=== PATIENT | male | born 1955 | race Caucasian/White ===

== ENCOUNTER 2020-08-15 14:05 | Inpatient (IN) ==
[2020-08-15] MEDS ORDERED: 0.9 % SODIUM CHLORIDE 1,000 ML IV ONE (14:32)
[2020-08-15] MEDS ORDERED: ACETAMINOPHEN 325 MG TABLET PO ONE (14:33)
[2020-08-15] MEDS ORDERED: cefTRIAXone 1 GM VIAL IV ONE (14:37)
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
[2020-08-15 15:18] LABS: Hematocrit 40.4 % (41.0-55.0); Hemoglobin 13.9 g/dL (13.5-16.5); Mean Cell Volume 86.7 fL (80.0-100.0); Mean Corpuscular HGB Conc 34.4 g/dL (31.0-36.0); Platelet Count 284 K/mcL (140-440); RBC 4.66 M/mcL (4.50-5.90); Red Cell Distribution Width 12.6 % (11.5-14.5); WBC 13.8 K/mcL (4.5-11.0)
[2020-08-15 15:52] LABS: ALT/SGPT 19 U/L (<40); AST/SGOT 22 U/L (<40); Albumin 3.9 gm/dL (3.2-5.2); Albumin/Globulin Ratio 1.3 (1.0-2.3); Alkaline Phosphatase 106 U/L (39-117); Bilirubin,Total 0.8 mg/dL (0.1-1.0); Blood Urea Nitrogen 18 mg/dL (8-23); Calcium 9.3 mg/dL (8.6-10.4); Carbon Dioxide 23 mmol/L (22-30); Chloride 100 mmol/L (96-108); Glomerular Filtration Rate 57; Glucose 91 mg/dL (70-105)
[2020-08-15 15:53] LABS: Band Neutrophils % 1 % (0-10); Eosinophils % (Manual) 1 % (0-7); Lymphocytes % 8 % (15-49); Monocytes % (Manual) 9 % (1-12); Platelet Estimate NORMAL (Normal); RBC Morphology NORMAL (Normal); Reactive Lymphocytes 1 % (0-2); Segmented Neutrophils % 80 % (38-78)
[2020-08-15 15:55] LABS: Appearance,Urine HAZY (Clear); Bilirubin,Urine Negative (Negative); Color,Urine YELLOW; Culture Indicated,Urine yes; Glucose,Urine (UA) Negative (Negative); Ketones,Urine Negative (Negative); Leukocyte Esterase,Urine 75 /ug (Negative); Nitrate,Urine Negative (Negative); Protein,Urine 30 mg/dL (Negative); Specific Gravity,Urine 1.018 (1.000-1.035); Urine RBC 120 /hpf (0-3); Urine Squamous Epithelial Cell 0 /hpf (0-4); Urine WBC 44 /hpf (0-4)
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
[2020-08-15] MEDS ORDERED: GENTAMICIN PER PHARMACY IV ONE (16:44)
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
[2020-08-15] MEDS: MEROPENEM 2 GM in 0.9 % SODIUM CHLORIDE 100 ML IV SCH (18:10)
[2020-08-15] MEDS ORDERED: ONDANSETRON 4 MG ODT TABLET SL PRN (20:25)
[2020-08-15] MEDS ORDERED: POLYETHYLENE GLYCOL 3350 17 GM PACKET PO PRN (20:25)
[2020-08-15] MEDS ORDERED: POTASSIUM CHLORIDE 20 MEQ PACKET PO PRN (20:25)
[2020-08-15] MEDS ORDERED: MAGNESIUM SULFATE 2 GM/50 ML BAG IV PRN (20:25)
[2020-08-15] MEDS ORDERED: MEROPENEM 0.5 GM in 0.9 % SODIUM CHLORIDE 50 ML IV SCH (20:25)
[2020-08-15] MEDS ORDERED: BISACODYL 10 MG SUPP.RECT PR PRN (20:25)
[2020-08-15] MEDS ORDERED: ACETAMINOPHEN 650 MG/65 ML BAG IV PRN (20:25)
[2020-08-15] MEDS ORDERED: ONDANSETRON 4 MG/2 ML VIAL IV PRN (20:25)
[2020-08-15] MEDS ORDERED: ACETAMINOPHEN 325 MG TABLET PO PRN (20:25)
[2020-08-15] MEDS ORDERED: POTASSIUM CHLORIDE 40 MEQ in DEXTROSE 5% IN WATER 500 ML IV PRN (20:25)
[2020-08-15] MEDS: 0.9 % SODIUM CHLORIDE 1,000 ML IV SCH ×2 (21:22→21:35)
[2020-08-15] MEDS: HEPARIN 5,000 UNIT/ML VIAL SQ SCH (21:38)
[2020-08-15] MEDS: TAMSULOSIN 0.4 MG CAPSULE PO SCH (21:38)
[2020-08-15] MEDS: DOCUSATE SODIUM 100 MG CAPSULE PO SCH (21:38)
[2020-08-15] MEDS: SENNOSIDES/DOCUSATE SODIUM 1 TAB TABLET PO SCH (21:38)
[2020-08-15] MEDS: 0.9 % SODIUM CHLORIDE 10 ML SYRINGE IV SCH (23:03)
[2020-08-16] MEDS: MEROPENEM 2 GM in 0.9 % SODIUM CHLORIDE 100 ML IV SCH ×4 (00:27→21:15)
[2020-08-16] MEDS: MELATONIN 3 MG TABLET PO PRN ×2 (01:17→21:09)
[2020-08-16 05:39] LABS: Hematocrit 35.2 % (41.0-55.0); Hemoglobin 12.1 g/dL (13.5-16.5); Mean Cell Volume 87.6 fL (80.0-100.0); Mean Corpuscular HGB Conc 34.4 g/dL (31.0-36.0); Mean Platelet Volume 9.7 fL (7.4-10.4); Platelet Count 236 K/mcL (140-440); RBC 4.02 M/mcL (4.50-5.90); Red Cell Distribution Width 12.5 % (11.5-14.5); WBC 8.6 K/mcL (4.5-11.0)
[2020-08-16] MEDS: 0.9 % SODIUM CHLORIDE 10 ML SYRINGE IV SCH ×3 (05:49→21:10)
[2020-08-16 06:03] LABS: ALT/SGPT 16 U/L (<40); AST/SGOT 16 U/L (<40); Albumin 3.2 gm/dL (3.2-5.2); Albumin/Globulin Ratio 1.2 (1.0-2.3); Alkaline Phosphatase 82 U/L (39-117); Bilirubin,Direct < 0.2 mg/dL (0-0.3); Bilirubin,Total 0.6 mg/dL (0.1-1.0); Blood Urea Nitrogen 16 mg/dL (8-23); Calcium 8.3 mg/dL (8.6-10.4); Carbon Dioxide 24 mmol/L (22-30); Chloride 105 mmol/L (96-108); Globulin 2.6 gm/dL (2.2-3.7); Glomerular Filtration Rate 63; Glucose 90 mg/dL (70-105); Lactate Dehydrogenase 131 U/L (135-225); Phosphorous 2.7 mg/dL (2.5-4.5); Triglycerides 67 mg/dL (<150); Uric Acid 6.2 mg/dL (2.5-8.0)
[2020-08-16] MEDS: 0.9 % SODIUM CHLORIDE 1,000 ML IV SCH ×3 (06:21→21:15)
[2020-08-16] MEDS: MULTIVIT,THER IRON,CA,FA & MIN 1 TABLET PO SCH (08:32)
[2020-08-16] MEDS: HEPARIN 5,000 UNIT/ML VIAL SQ SCH ×2 (08:32→21:10)
[2020-08-16] MEDS: DOCUSATE SODIUM 100 MG CAPSULE PO SCH ×2 (08:33→21:10)
--- NOTE | 2020-08-16 08:54 | General Surgery Progress Note ---
SUBJECTIVE Subjective Patient information: Note initiated : 08/16/20 at 8:49 am Service Date, if different from initiated Date: [] Patient: Osvaldo Naik 65 y/o M admitted on 08/15/20 for Fever after prostate biopsy yesterday.. Chief Complaint: [] Principal diagnosis: post op biopsy infection Interval history: Patient doing well presently and remains afebrile vital signs stable Patient has no nausea vomiting and voiding has significantly improved and remains clear Constitutional Vitals: Vital Signs Patient doing well with no CVA tenderness no abdominal masses and nontoxic exam grossly normal Temp Pulse Resp BP Pulse Ox 97.9 F 71 16 135/73 96 08/16/20 07:42 08/16/20 07:42 08/16/20 07:42 08/16/20 07:42 08/16/20 07:42 Period Temp Pulse Resp BP Sys/[place] Pulse Ox Last 24 Hr 97.9 F-104.3 F 68-125 16-20 101-136/60-82 92-99 Intake and Output 08/15/20 08/16/20 08/16/20 21:59 05:59 13:59 Intake Total 1100 390 340 Output Total 925 150 Balance 1100 -535 190 Weight 197 lb Intake & Output: Intake & Output 08/15/20 08/16/20 08/16/20 21:59 05:59 13:59 Intake Total 1100 390 340 Output Total 925 150 Balance 1100 -535 190 Weight 197 lb Intake: IV 1100 100 100 Sodium Chloride 0.9% 1,000 ml @ 1000 Wide Open IV [facility] Rx#: [id number] Merrem 2 gm In Sodium Chloride 100 100 100 0.9% 100 ml @ 100 mls/hr IV Q8H [facility] Rx#:[id number] Oral 290 240 Output: Void Amount 925 150 Other: Meal Breakfast Percent of Meal Consumed 100% Feeding Ability Independent Urine Appearance Clear Urine Color Pale A/P Narrative A/P Narrative: Patient doing well and resolving infection with WBC is returning to normal and urine remaining clear. Patient emptying bladder well with Flomax and will await urine culture results and see if alternate antibiotic regimen can be obtained for patient as outpatient status. Plan to proceed with work-up for prostate cancer once resolution of inflammatory process more treated--likely 10 to 14 days Time Spent With Patient Time: Total time spent is greater than 50% in coordination of care (as documented) at patient's floor/unit and/or counseling patient:
[2020-08-16 09:36] LABS: Eosinophils % (Manual) 1 % (0-7); Lymphocytes % 26 % (15-49); Monocytes % (Manual) 8 % (1-12); Platelet Estimate NORMAL (Normal); Polychromasia OCC (None Seen); RBC Morphology ABNORMAL (Normal); Reactive Lymphocytes 2 % (0-2); Segmented Neutrophils % 63 % (38-78)
[2020-08-16] MEDS ORDERED: GABAPENTIN 300 MG CAPSULE PO PRN (10:20)
[2020-08-16] MEDS: ESCITALOPRAM 10 MG TABLET PO SCH (10:51)
[2020-08-16] MEDS: busPIRone 5 MG TABLET PO SCH ×2 (10:52→21:09)
[2020-08-16] MEDS: OMEPRAZOLE 20 MG CAPSULE PO SCH (10:52)
[2020-08-16] MEDS: CETIRIZINE 10 MG TABLET PO SCH (10:52)
--- NOTE | 2020-08-16 13:27 | Internal Med Progress Note ---
SUBJECTIVE Subjective Patient information: Note initiated : 08/16/20 at 1:24 pm Service Date, if different from initiated Date: [] Patient: Osvaldo Naik 65 y/o M admitted on 08/15/20 for Fever after prostate biopsy yesterday.. Chief Complaint: [] Principal diagnosis: post op biopsy infection Interval history: Mrs. Wallace 65-year-old gentleman who underwent transrectal prostate biopsy yesterday by urologist Dr. Kaz Velez. Patient received a dose of Rocephin/gentamicin and sent home post biopsy. Shortly thereafter marva leija started experiencing shaking chills and high-grade fever and call urology office and was directed to the ER for evaluation Initial work-up was consistent with fever of 104.2/elevated white count at 13.6. Systolics around 100. Lactic acid normal. Patient was started on antibiotic coverage after cultures were drawn. Urology was consulted and advised hospitalization. In addition hospitalist service was consulted for management of medical issues during the hospital stay while post biopsy infection will be addressed by urology. 08/16 patient responding well to meropenem. Afebrile. White count downtrending at 8.6. Denies abdominal pain, fever chills, creatinine down to 1.2 Constitutional Vitals: Vital Signs Temp Pulse Resp BP Pulse Ox 97.8 F 52 L 16 120/70 94 08/16/20 12:00 08/16/20 12:00 08/16/20 12:00 08/16/20 12:00 08/16/20 12:00 Period Temp Pulse Resp BP Sys/[place] Pulse Ox Last 24 Hr 97.8 F-104.3 F 52-125 16-20 101-136/60-82 92-99 Intake and Output 08/15/20 08/16/20 08/16/20 21:59 05:59 13:59 Intake Total 2542 240 3521 Output Total 925 150 Balance 1100 -535 1190 Weight 89.358 kg Alert oriented Nonlabored breathing Nondistended abdomen Minimal anxiety Intake & Output: Intake & Output 08/15/20 08/16/20 08/16/20 21:59 05:59 13:59 Intake Total 3580 999 3682 Output Total 925 150 Balance 1100 -535 1190 Weight 89.358 kg Intake: IV 0435 551 0382 Sodium Chloride 0.9% 1,000 ml @ 1000 1000 100 mls/hr IV .Q10H [facility] Rx#: [id number] Merrem 2 gm In Sodium Chloride 100 100 100 0.9% 100 ml @ 100 mls/hr IV Q8H [facility] Rx#:[id number] Oral 290 240 Output: Void Amount 925 150 Other: Meal Breakfast Percent of Meal Consumed 100% Feeding Ability Independent Urine Appearance Clear Urine Color Pale # Voids 1 # Bowel Movements 1 OBJ DATA Labs CBC & Chem 7: 08/16/20 05:14 08/16/20 05:10 Labs: Abnormal Lab Results 08/16/20 08/16/20 08/15/20 05:14 05:10 15:08 WBC RBC 4.02 L Hgb 12.1 L Hct 35.2 L Seg Neutrophils % Lymphocytes % RBC Morphology Abnormal A Polychromasia Occ A Sodium Anion Gap 6.0 L Creatinine Calcium 8.3 L Lactate Dehydrogenase 131 L Total Protein 5.8 L Urine Appearance Hazy A Urine Protein 30 A Urine Urobilinogen 2.0 A Ur Leukocyte Esterase 75 A Urine RBC 120 H Urine WBC 44 H 08/15/20 08/15/20 14:25 14:25 WBC 13.8 H RBC Hgb Hct 40.4 L Seg Neutrophils % 80 H Lymphocytes % 8 L RBC Morphology Polychromasia Sodium 131 L Anion Gap Creatinine 1.3 H Calcium Lactate Dehydrogenase Total Protein Urine Appearance Urine Protein Urine Urobilinogen Ur Leukocyte Esterase Urine RBC Urine WBC Meds: Medications Acetaminophen (Acetaminophen 325 Mg Tablet) 650 mg PO Q4-6HP PRN; Protocol PRN Reason: Per Pain Protocol/Fever > 101 Amlodipine Besylate (Amlodipine 10 Mg Tablet) 10 mg PO QDAY [facility] Atorvastatin Calcium (Atorvastatin 10 Mg Tablet) 10 mg PO HS [facility] Bisacodyl (Bisacodyl 10 Mg Supp.Rect) 10 mg DE Q2-3DAYS PRN PRN Reason: Constipation Buspirone HCl (Buspirone 5 Mg Tablet) 5 mg PO BID [facility] Last Admin: 08/16/20 10:52 Dose: 5 mg Documented by: Cetirizine HCl (Cetirizine 10 Mg Tablet) 10 mg PO QAM [facility] Last Admin: 08/16/20 10:52 Dose: 10 mg Documented by: Docusate Sodium (Docusate Sodium 100 Mg Capsule) 100 mg PO BID [facility] Last Admin: 08/16/20 08:33 Dose: Not Given Documented by: Escitalopram Oxalate (Escitalopram 10 Mg Tablet) 5 mg PO DAILY [facility] Last Admin: 08/16/20 10:51 Dose: 5 mg Documented by: Gabapentin (Gabapentin 300 Mg Capsule) 900 mg PO TIDP PRN PRN Reason: Pain Heparin Sodium (Porcine) (Heparin 5,000 Unit/Ml Vial) 5,000 unit SQ Q12 [facility] Last Admin: 08/16/20 08:32 Dose: 5,000 unit Documented by: Hydrochlorothiazide (Hydrochlorothiazide 25 Mg Tablet) 25 mg PO QAM [facility] Hydroxyzine HCl (Hydroxyzine 25 Mg Tablet) 25 mg PO HS [facility] Meropenem 2 gm/ Sodium (Chloride) 100 mls @ 100 mls/hr IV Q8H [facility] Last Infusion: 08/16/20 06:58 Dose: Infused Documented by: Potassium Chloride 40 meq/ (Dextrose) 520 mls @ 130 mls/hr IV UD PRN PRN Reason: K+ = or < 3.5 Acetaminophen (Ofirmev) 650 mg in 65 mls @ 130 mls/hr IV Q6HP PRN; Protocol PRN Reason: Per Pain Protocol/Fever > 101 Magnesium Sulfate (Magnesium Sulfate) 2 gm in 50 mls @ 50 mls/hr IV UD PRN PRN Reason: MG = or < 1.7 Sodium Chloride (Sodium Chloride 0.9%) 1,000 mls @ 100 mls/hr IV .Q10H [facility] Last Admin: 08/16/20 11:08 Dose: 100 mls/hr Documented by: Iron Carb/Multivit/[employer]/Folic Acid (Multivit,Ther Iron,Ca,Fa & Min 1 Tablet) 1 tab PO DAILY [facility] Last Admin: 08/16/20 08:32 Dose: 1 tab Documented by: Melatonin (Melatonin 3 Mg Tablet) 3 mg PO HSP PRN PRN Reason: Insomnia Last Admin: 08/16/20 01:17 Dose: 3 mg Documented by: Omeprazole (Omeprazole 20 Mg Capsule) 20 mg PO ACB [facility] Last Admin: 08/16/20 10:52 Dose: 20 mg Documented by: Ondansetron HCl (Ondansetron 4 Mg Odt Tablet) 4 mg SL Q4-6HP PRN; Protocol PRN Reason: Nausea And Vomiting Ondansetron HCl (Ondansetron 4 Mg/2 Ml Vial) 4 mg IV Q4-6HP PRN; Protocol PRN Reason: Nausea And Vomiting Polyethylene Glycol (Polyethylene Glycol 3350 17 Gm Packet) 17 gm PO DAILYP PRN PRN Reason: Constipation Potassium Chloride (Potassium Chloride 20 Meq Packet) 40 meq PO DAILYP PRN PRN Reason: K+ < 3.5 Senna/Docusate Sodium (Sennosides/Docusate Sodium 1 Tab Tablet) 1 tab PO [facility] Last Admin: 08/15/20 21:38 Dose: Not Given Documented by: Sodium Chloride (0.9 % Sodium Chloride 10 Ml Syringe) 10 ml IV Q8 [facility] Last Admin: 08/16/20 05:49 Dose: Not Given Documented by: Tamsulosin HCl (Tamsulosin 0.4 Mg Capsule) 0.4 mg PO [facility] Last Admin: 08/15/20 21:38 Dose: 0.4 mg Documented by: A/P Narrative A/P Narrative: * Post prostate biopsy infection: Managed per urology * Prostate cancer-managed per urology Hospitalist consult for management medical issues * Severe sepsis-responded well to IV meropenem for ESBL coliform coverage. Cultures negative so far * History of CKD continue monitoring renal function. Creatinine at baseline * History of hypertension restart antihypertensives in 24 hours * History of GERD continue PPI * Neuropathy continue gabapentin * Anxiety disorder continue escitalopram/BuSpar * prophylaxis Heparin Plan * Continue meropenem IV * Pre-existing medical condition management as above * Restart antihypertensives in 24 hours * De-escalate antibiotics once culture resulted Time Spent With Patient Time: Total time spent is greater than 50% in coordination of care (as documented) at patient's floor/unit and/or counseling patient: QUALITY VTE Deep Vein Thrombosis/Pulmonary Embolism Present on Admission: No
[2020-08-16] MEDS ORDERED: busPIRone 5 MG TABLET PO SCH (21:00)
[2020-08-16] MEDS ORDERED: hydrOXYzine 25 MG TABLET PO SCH (21:00)
[2020-08-16] MEDS ORDERED: ATORVASTATIN 10 MG TABLET PO SCH (21:00)
[2020-08-16] MEDS: TAMSULOSIN 0.4 MG CAPSULE PO SCH (21:09)
[2020-08-16] MEDS: SENNOSIDES/DOCUSATE SODIUM 1 TAB TABLET PO SCH (21:10)
[2020-08-17] MEDS: 0.9 % SODIUM CHLORIDE 1,000 ML IV SCH ×2 (04:58→10:27)
[2020-08-17] MEDS: MEROPENEM 2 GM in 0.9 % SODIUM CHLORIDE 100 ML IV SCH ×2 (05:41→14:59)
[2020-08-17] MEDS: 0.9 % SODIUM CHLORIDE 10 ML SYRINGE IV SCH ×2 (05:42→13:17)
[2020-08-17 07:28] LABS: Basophils # (Auto) 0.03 K/mcL (0.00-0.20); Basophils % (Auto) 0.5 % (0.0-2.0); Eosinophils # (Auto) 0.17 K/mcL (0.00-0.70); Eosinophils % (Auto) 2.8 % (0.0-7.0); Hematocrit 35.7 % (41.0-55.0); Hemoglobin 12.3 g/dL (13.5-16.5); Lymphocytes # (Auto) 1.08 K/mcL (1.50-4.80); Mean Cell Volume 87.3 fL (80.0-100.0); Mean Corpuscular HGB Conc 34.5 g/dL (31.0-36.0); Mean Platelet Volume 10.4 fL (7.4-10.4); Monocytes # (Auto) 0.66 K/mcL (0.10-0.90); Neutrophils % (Auto) 67.7 % (38.0-78.0); Platelet Count 253 K/mcL (140-440); RBC 4.09 M/mcL (4.50-5.90); Red Cell Distribution Width 12.5 % (11.5-14.5)
[2020-08-17] MEDS ORDERED: OMEPRAZOLE 20 MG CAPSULE PO SCH (07:30)
--- NOTE | 2020-08-17 07:53 | General Surgery Progress Note ---
SUBJECTIVE Subjective Patient information: Note initiated : 08/17/20 at 7:46 am Service Date, if different from initiated Date: [] Patient: Osvaldo Naik 65 y/o M admitted on 08/15/20 for Fever after prostate biopsy yesterday.. Chief Complaint: [] Principal diagnosis: post op biopsy infection Interval history: AFVSS no new complaints and cont to void OK with meds-remains clear urine labs OK this am on CBC- chem pending Constitutional Vitals: Vital Signs Temp Pulse Resp BP Pulse Ox 97.8 F 81 16 127/82 95 08/17/20 06:51 08/17/20 06:51 08/17/20 06:51 08/17/20 06:51 08/17/20 06:51 Period Temp Pulse Resp BP Sys/[place] Pulse Ox Last 24 Hr 97.8 F-99.0 F 72-81 16-16 116-161/66-85 93-96 Intake and Output 08/16/20 08/17/20 08/17/20 21:59 05:59 13:59 Intake Total 1340 200 Output Total 975 375 250 Balance 365 -175 -250 Weight 200 lb Intake & Output: Intake & Output 08/16/20 08/17/20 08/17/20 21:59 05:59 13:59 Intake Total 1340 200 Output Total 975 375 250 Balance 365 -175 -250 Weight 200 lb Intake: IV 1100 100 Sodium Chloride 0.9% 1,000 ml @ 1000 100 mls/hr IV .Q10H [facility] Rx#: [id number] Merrem 2 gm In Sodium Chloride 100 100 0.9% 100 ml @ 100 mls/hr IV Q8H [facility] Rx#:[id number] Oral 240 100 Output: Void Amount 975 375 250 Other: Meal Dinner Percent of Meal Consumed 100% Feeding Ability Independent Urine Appearance Clear Clear Clear Urine Color Pale Dark Yellow Bright Yellow Additional findings Additional findings: nontoxic and comfortable abd soft no CVA tenderness A/P Narrative A/P Narrative: Doing well on parenteral antibiotics and should be able to go home on orals if cultures remain negative-could check with ID but likely Levaquin reasonable or as per ID empirically and per local microbial dillon assessment will need to see back in about two-three weeks for staging cancer and further reval for tretment options- could see back in clinic next week for f/u on infection Time Spent With Patient Time: Total time spent is greater than 50% in coordination of care (as documented) at patient's floor/unit and/or counseling patient:
[2020-08-17] MEDS: OMEPRAZOLE 20 MG CAPSULE PO SCH (08:00)
[2020-08-17] MEDS: DOCUSATE SODIUM 100 MG CAPSULE PO SCH (08:01)
[2020-08-17 08:02] LABS: ALT/SGPT 14 U/L (<40); AST/SGOT 15 U/L (<40); Albumin 3.4 gm/dL (3.2-5.2); Albumin/Globulin Ratio 1.3 (1.0-2.3); Alkaline Phosphatase 78 U/L (39-117); Bilirubin,Direct < 0.2 mg/dL (0-0.3); Bilirubin,Total 0.3 mg/dL (0.1-1.0); Blood Urea Nitrogen 11 mg/dL (8-23); Calcium 8.5 mg/dL (8.6-10.4); Carbon Dioxide 22 mmol/L (22-30); Chloride 106 mmol/L (96-108); Globulin 2.6 gm/dL (2.2-3.7); Glomerular Filtration Rate 78; Glucose 85 mg/dL (70-105); Lactate Dehydrogenase 153 U/L (135-225); Phosphorous 2.4 mg/dL (2.5-4.5); Triglycerides 93 mg/dL (<150); Uric Acid 5.2 mg/dL (2.5-8.0)
[2020-08-17] MEDS ORDERED: CETIRIZINE 10 MG TABLET PO SCH (09:00)
[2020-08-17] MEDS ORDERED: HYDROCHLOROTHIAZIDE 25 MG TABLET PO SCH (09:00)
[2020-08-17] MEDS ORDERED: amLODIPine 10 MG TABLET PO SCH (09:00)
[2020-08-17] MEDS ORDERED: ESCITALOPRAM 10 MG TABLET PO SCH (09:00)
[2020-08-17] MEDS: busPIRone 5 MG TABLET PO SCH (10:21)
[2020-08-17] MEDS: ESCITALOPRAM 10 MG TABLET PO SCH (10:21)
[2020-08-17] MEDS: CETIRIZINE 10 MG TABLET PO SCH (10:22)
[2020-08-17] MEDS: HEPARIN 5,000 UNIT/ML VIAL SQ SCH (10:24)
[2020-08-17] MEDS: MULTIVIT,THER IRON,CA,FA & MIN 1 TABLET PO SCH (10:26)
--- NOTE | 2020-08-17 13:37 | Discharge Summary ---
Discharge Provider Provider Patient information: Note initiated : 08/17/20 at 1:33 pm Service Date, if different from initiated Date: [] Patient: Osvaldo Naik 65 y/o M admitted on 08/15/20 for Fever after prostate biopsy yesterday.. Discharge diagnosis * Post prostate biopsy infection: Managed per urology, patient doing well. We will follow-up with urology as outpatient. Was recommendations * Prostate cancer-managed per urology. Outpatient urology Hospitalist consult for management medical issues * Severe sepsis-responded well to IV meropenem for ESBL coliform coverage. However cultures negative so far. Discharging on oral cefdinir for additional 10 days * History of CKD remained at baseline * History of hypertension continue home dose antihypertensives * History of GERD continue PPI * Neuropathy managed on gabapentin * Anxiety disorder remained stable on home dose escitalopram/BuSpar Brief hospital course Mrs. Wallace 65-year-old gentleman who underwent transrectal prostate biopsy yesterday by urologist Dr. Kaz Velez. Patient received a dose of Rocephin/gentamicin and sent home post biopsy. Shortly thereafter patient started experiencing shaking chills and high-grade fever and call urology office and was directed to the ER for evaluation Initial work-up was consistent with fever of 104.2/elevated white count at 13.6. Systolics around 100. Lactic acid normal. Patient was started on antibiotic coverage after cultures were drawn. Urology was consulted and advised hospitalization. In addition hospitalist service was consulted for management of medical issues during the hospital stay while post biopsy infection will be addressed by urology. 08/16 patient responding well to meropenem. Afebrile. White count downtrending at 8.6. Denies abdominal pain, fever chills, creatinine down to 1.2 08/17-cultures negative so far. Doing well. Afebrile. White count normalized. Clinically improved. Urology recommend p.o. antibiotics on discharge. Continue additional 10 days oral cefdinir due to risk of prolonged QT with Levaquin and home medications. Follow-up with urology as outpatient. Date of admission: 08/15/20 20:20 Discharge date: 08/17/20 Primary care physician: Aisha Beatty Consults: 08/15/20 Consult to Physician [CONS] Stat Comment: Consulting Provider: Kaz Velez Reason For Exam: Physician to Consult 08/15/20 16:23 Consult to Physician [CONS] Stat Comment: Consulting Provider: Mic Tee Reason For Exam: Physician to Consult Discharge Meds Discharge Medications Home Medications omeprazole 20 mg PO QAMAC 05/15/15 [History Confirmed 08/15/20 Last Taken 08/14/20 08:00] amlodipine 10 mg tablet 10 mg PO QDAY 06/28/20 [History Confirmed 08/15/20 Last Taken 08/14/20 08:00] buspirone 5 mg tablet 5 mg PO BID tab 06/28/20 [History Confirmed 08/15/20 Last Taken 08/14/20 08:00] escitalopram oxalate 5 mg tablet 5 mg PO QPM 06/28/20 [History Confirmed 08/15/20 Last Taken 08/14/20 08:00] hydroxyzine HCl 25 mg tablet 25 mg PO QHS 06/28/20 [History Confirmed 08/15/20 Last Taken 08/13/20 20:00] cetirizine 10 mg PO QAM 08/15/20 [History Confirmed 08/15/20 Last Taken 08/14/20 08:00] gabapentin 900 mg PO TID PRN 08/15/20 [History Confirmed 08/15/20 Last Taken 08/14/20 08:00] hydrochlorothiazide 25 mg PO QAM 08/15/20 [History Confirmed 08/15/20 Last Taken 08/14/20 08:00] losartan 100 mg PO QAM 08/15/20 [History Confirmed 08/15/20 Last Taken 08/14/20 08:00] rosuvastatin 5 mg PO QPM 08/15/20 [History Confirmed 08/15/20 Last Taken 07/02/20] cefdinir 300 mg PO BID #20 cap 08/17/20 [Rx Last Taken Unknown] COURSE Hospital Course Hospital course: . Discharge diagnosis: . Time Spent with Patient Time attestation: Total time spent providing and/or coordinating discharge services: EXAM Constitutional Vitals: Temp Pulse Resp BP Pulse Ox 98.4 F 76 18 142/83 96 08/17/20 11:10 08/17/20 11:10 08/17/20 11:10 08/17/20 11:10 08/17/20 11:10 Discharge Data Data Completed and Pending Labs on day of discharge: Labs from last 24 hours 08/17/20 08/17/20 05:24 05:24 WBC 6.0 RBC 4.09 L Hgb 12.3 L Hct 35.7 L MCV 87.3 MCH 30.1 MCHC 34.5 RDW 12.5 Plt Count 253 MPV 10.4 Neut % (Auto) 67.7 Lymph % (Auto) 18.0 Posey % (Auto) 11.0 Eos % (Auto) 2.8 Baso % (Auto) 0.5 Lymph # (Auto) 1.08 L [place] # (Auto) 0.66 Eos # (Auto) 0.17 Baso # (Auto) 0.03 Absolute Neutrophils 4.07 Sodium 137 Potassium 4.3 Chloride 106 Carbon Dioxide 22 Anion Gap 9.0 BUN 11 Creatinine 1.0 GFR Calculation 78 Glucose 85 Uric Acid 5.2 Calcium 8.5 L Phosphorus 2.4 L Magnesium 2.2 Total Bilirubin 0.3 Direct Bilirubin < 0.2 GGT 22 AST 15 ALT 14 Alkaline Phosphatase 78 Lactate Dehydrogenase 153 Total Protein 6.0 Albumin 3.4 Globulin 2.6 Albumin/Globulin Ratio 1.3 Triglycerides 93 Preliminary micro results at discharge 08/15/20 14:45 Blood Culture - Preliminary Blood 08/15/20 14:25 Blood Culture - Preliminary Blood Discharge Plan Patient/Caregiver Discharge Instructions Activity: increase activity as tolerated Diet: Regular Diet Activity Restrictions/Additional Instructions: Continue oral cefdinir for 10 days Follow-up urology as recommended by urologist for follow-up of post prostate biopsy management Return to ER if worsening fever chills nausea vomiting Prescriptions: New cefdinir 300 MG capsule 300 mg PO BID Qty: 20 RF: 0 Continued buspirone 5 mg tablet 5 mg PO BID RF: 0 hydroxyzine HCl 25 mg tablet 25 mg PO QHS RF: 0 escitalopram oxalate 5 mg tablet 5 mg PO QPM RF: 0 amlodipine 10 mg tablet 10 mg PO QDAY RF: 0 omeprazole 10 MG capsule,delayed release(DR/EC) 20 mg PO QAMAC RF: 0 rosuvastatin 5 mg Tablet 5 mg PO QPM RF: 0 cetirizine 10 mg tablet 10 mg PO QAM RF: 0 gabapentin 300 mg capsule 900 mg PO TID PRN (Reason: Pain) RF: 0 hydrochlorothiazide 25 mg tablet 25 mg PO QAM RF: 0 losartan 100 mg tablet 100 mg PO QAM RF: 0 Follow Up Plan Follow up with: Aisha Beatty ARNP [Primary Care Provider] - Patient Disposition: Home, Self-Care Rehab Potential: Fair I certify that the patient requires SNF services: No Overall status at discharge: patient is progressing back to baseline Discharge Orders: Discharge Order (Routine); Ordered 08/17/20 Ordered By: Mic VAZQUEZ VTE Deep Vein Thrombosis/Pulmonary Embolism Present on Admission: No
== END 2020-08-17 17:25 | disposition home or self-care (01) | DRG 862 ==
LOC: ED 14:05 → MEDSUR 20:20
PROVIDERS: ADMIT Urology; ATTEND Urology